=== PATIENT | female | born 1990 | race Caucasian/White ===

== ENCOUNTER 2016-07-19 23:25 | Emergency (ER) | payer MEDICAID, OTHER ==
[~2016-07-19] VITALS: Ht 154.9 cm; Wt 96.2 kg
[~2016-07-19 23:25] MED LIST: LORTA5 PO; MACR100C PO
[2016-07-19 23:28] VITALS: BP 128/78; PULSE 93; RESP 16; TEMP 97.8; O2SAT 97
[2016-07-19] MEDS ORDERED: SODIUM CHLORIDE 0.9% FLUSH 10 ML FLUSH IV FLUSH PRN (23:45)
--- NOTE | 2016-07-19 23:47 | PD ---
HPI Chief Complaint: Flank/Kidney Pain Time Seen by Provider: 23:43 Travel History International Travel<30 days: No Contact w/Intl Traveler<30days: No Traveled to known affect area: No History of Present Illness HPI 26-year-old female presents to the emergency department for complaint of left upper quadrant abdominal pain worsened by eating and drinking. Patient rates discomfort as moderate. Patient denies fever chills. Patient's had nausea without vomiting. Patient denies diarrhea or constipation. Patient does not report any hematemesis or coffee-ground emesis. Patient denies dysuria frequency urgency hematuria or flank pain. Patient takes control pills last muscle. Just ended a few days ago and denies . Patient is 3 para 1 AB 2. Patient has had previous urinary tract infections but states symptoms are not similar to prior UTI. Patient denies chest pain or shortness of breath. Patient's had no recent respiratory illness. Patient is able to identify alleviating factors. Patient denies history of peptic ulcer disease gallbladder disease issues with pancreatitis in the past. [facility] Past Medical History Narrative Medical use hypertension; ; no tobacco use; nursing notes reviewed Diminished Hearing: No Hypertension: Yes : 2 Para: 1 Miscarriage: 1 Dilation and Curettage (D&C): Yes Past Surgical History Section: Yes (2008) Social History Alcohol Use: Yes (SOCIAL) Tobacco Use: No Substance Use: No Allergies-Medications (Allergen,Severity, Reaction): Coded Allergies: Penicillin (Verified Allergy, Unknown, 07/20/16) Reported Meds & Prescriptions Reported Meds & Active Scripts Active Cipro (Ciprofloxacin HCl) 500 Mg Tab 500 Mg PO BID 7 Days Reported [ Control] 1 Tab PO DAILY Review of Systems Except as stated in HPI: all other systems reviewed are Neg General / Constitutional: No: Fever, Chills HENT: No: Congestion Cardiovascular: No: Chest Pain or Discomfort Gastrointestinal: Positive: Nausea, Abdominal Pain, No: Vomiting, Diarrhea Genitourinary: No: Dysuria, Flank Pain, Dysmenorrhea, Vaginal Bleeding Musculoskeletal: No: Myalgias, Arthralgias Skin: No Rash Neurologic: No: Weakness Psychiatric: No: Anxiety Endocrine: No: Heat Intolerance Hematologic/Lymphatic: No: Easy Bruising Physical Exam Narrative GENERAL: Well-developed well-nourished obese female in no acute distress no respiratory distress SKIN: Warm and dry. HEAD: Normocephalic. EYES: No scleral icterus. No injection or drainage. NECK: Supple, trachea midline. No JVD or lymphadenopathy. CARDIOVASCULAR: Regular rate and rhythm without murmurs, gallops, or rubs. RESPIRATORY: Breath sounds equal bilaterally. No accessory muscle use. GASTROINTESTINAL: Abdomen soft, reproducible left upper quadrant tenderness without guarding or rebound, nondistended. MUSCULOSKELETAL: No cyanosis, or edema. BACK: Nontender without obvious deformity. No CVA tenderness. Data Data Last Documented VS Vital Signs Date Time Temp Pulse Resp B/P Pulse Ox O2 Delivery O2 Flow Rate FiO2 07/20/16 02:15 81 18 117/65 97 Room Air 07/19/16 23:28 97.8 Orders Complete Blood Count With Diff (07/19/16 23:43) Comprehensive Metabolic Panel (07/19/16 23:43) Lipase (07/19/16 23:43) Urinalysis - C+S If Indicated (07/19/16 23:43) Iv Access Insert/Monitor (07/19/16 23:43) Ecg Monitoring (07/19/16 23:43) Oximetry (07/19/16 23:43) Sodium Chloride 0.9% Flush (Ns Flush) (07/19/16 23:45) Ed Urine Pregnancytest Poc (07/19/16 23:43) Urine Culture (07/19/16 23:45) Ct Abd/Pel W Iv Contrast(Rout) (07/20/16 ) Ketorolac Inj (Toradol Inj) (07/20/16 01:15) Iohexol 350 Inj (Omnipaque 350 Inj) (07/20/16 02:07) Labs Laboratory Tests Test 07/19/16 07/19/16 23:45 23:55 Urine Color YELLOW Urine Turbidity SLIGHT Urine pH 6.0 Urine Specific [place] 1.022 Urine Protein NEG mg/dL Urine Glucose (UA) NEG mg/dL Urine Ketones NEG mg/dL Urine Occult Blood NEG Urine Nitrite NEG Urine Bilirubin NEG Urine Leukocyte Esterase TRACE Urine WBC 9-14 /hpf Urine Squamous Epithelial > 8 /hpf Cells Urine Amorphous Sediment FEW Urine Bacteria FEW /hpf Urine Mucus FEW /lpf Microscopic Urinalysis Comment CULTURE INDICATED White Blood Count 14.0 TH/MM3 Red Blood Count 4.79 MIL/MM3 Hemoglobin 13.5 GM/DL Hematocrit 39.7 % Mean Corpuscular Volume 82.7 FL Mean Corpuscular Hemoglobin 28.2 PG Mean Corpuscular Hemoglobin 34.1 % Concent Red Cell Distribution Width 12.4 % Platelet Count 225 TH/MM3 Mean Platelet Volume 10.6 FL Neutrophils (%) (Auto) 60.5 % Lymphocytes (%) (Auto) 24.6 % Monocytes (%) (Auto) 3.9 % Eosinophils (%) (Auto) 10.0 % Basophils (%) (Auto) 1.0 % Neutrophils # (Auto) 8.6 TH/MM3 Lymphocytes # (Auto) 3.4 TH/MM3 Monocytes # (Auto) 0.5 TH/MM3 Eosinophils # (Auto) 1.4 TH/MM3 Basophils # (Auto) 0.1 TH/MM3 CBC Comment DIFF FINAL Differential Comment Sodium Level 141 MEQ/L Potassium Level 3.6 MEQ/L Chloride Level 107 MEQ/L Carbon Dioxide Level 26.7 MEQ/L Anion Gap 7 MEQ/L Blood Urea Nitrogen 14 MG/DL Creatinine 0.92 MG/DL Estimat Glomerular Filtration 74 ML/MIN Rate Random Glucose 95 MG/DL Calcium Level 8.5 MG/DL Total Bilirubin 0.2 MG/DL Aspartate Amino Transf 27 U/L (AST/SGOT) Alanine Aminotransferase 42 U/L (ALT/SGPT) Alkaline Phosphatase 63 U/L Total Protein 7.2 GM/DL Albumin 3.2 GM/DL Lipase 129 U/L MDM Medical Decision Making Medical Screen Exam Complete: Yes Emergency Medical Condition: Yes Medical Record Reviewed: Yes Interpretation(s) CBC & BMP Diagram 07/19/16 23:55 Vital Signs Date Time Temp Pulse Resp B/P Pulse Ox O2 Delivery O2 Flow Rate FiO2 07/20/16 01:15 82 18 115/72 96 Room Air 07/20/16 00:15 88 18 145/85 96 Room Air 07/19/16 23:55 97 Room Air 07/19/16 23:28 97.8 93 16 128/[address] abd/pel w contrast: CONCLUSION: 1. Multiple small lymph nodes throughout the mesentery. 2. No acute inflammatory process. Jean Claude Ma MD on July 20, 2016 at 2:10 Board Certified Radiologist. This report was verified electronically. POC hcg: negative Differential Diagnosis Abdominal pain, gastritis, peptic ulcer disease, pancreatitis, atypical biliary colic, cholecystitis, UTI, flank pain, pyelonephritis Narrative Course IV access obtained specimens collected and sent for resulting urinalysis specimen collected [id number] test performed Diagnosis Primary Impression: UTI (urinary tract infection) Additional Impressions: Abdominal pain Gastritis Referrals: Primary Care Physician call for appointment Patient Instructions: General Instructions Additional Instructions: Increase fluid hydration Follow-up with primary care provider Return to the emergency department for a concerns or change in condition Take Zantac 150 twice daily for one week Recommend clear liquid diet for next 12-24 hours and advance as tolerated to bland diet then regular diet avoiding fried and fatty foods Take acetaminophen as needed for fever 100.4F or greater Avoid non-steroidal medications such as Advil/Motrin/ibuprofen and Aleve/ naproxen/Naprosyn 2 weeks Med/Other Pt SpecificInfo: Prescription(s) given Scripts Ciprofloxacin (Cipro)500 Mg Nay691 Mg PO BID 7 Days Ref 0 Prov:Reba Bateman MD 07/20/16 Disposition: 01 DISCHARGE HOME Condition: Stable Reba Bateman MD Jul 19, 2016 23:47
[2016-07-19 23:55] VITALS: O2SAT 97
[2016-07-20 00:10] LABS: BLOOD, URINE NEG (NEG); GLUCOSE,URINE NEG (NEG); KETONE, URINE NEG (NEG); NITRITE,URINE NEG (NEG)
[2016-07-20 00:15] VITALS: BP 145/85; PULSE 88; RESP 18; O2SAT 96
[2016-07-20 00:18] LABS: URINE COLOR YELLOW (YELLW/STRAW)
[2016-07-20 00:19] LABS: BACTERIA, URINE FEW /hpf; MUCUS URINE FEW /lpf (OCC); SQUAMOUS EPITHELIAL CELL URINE > 8 /hpf (0-5)
[2016-07-20 00:20] LABS: COMMENT (UR) CULTURE INDICATED; CULTURE IF INDICATED CULTURE INDICATED
[2016-07-20 00:20] LABS: CHLORIDE 107 MEQ/L (98-107); POTASSIUM 3.6 MEQ/L (3.5-5.1); SODIUM (NA) 141 MEQ/L (136-145)
[2016-07-20] MEDS ORDERED: Birth Control PO (00:22)
[2016-07-20 00:24] LABS: ANION GAP 7 MEQ/L (5-15); BICARBONATE 26.7 MEQ/L (21.0-32.0); BLOOD UREA NITROGEN 14 MG/DL (7-18)
[2016-07-20 00:26] LABS: ALT (GPT) 42 U/L (10-53); AST (GOT) 27 U/L (15-37)
[2016-07-20 00:27] LABS: GLOMERULAR FILTRATION RATE 74 ML/MIN (>89)
[2016-07-20 00:28] LABS: TOTAL BILIRUBIN ADULT 0.2 MG/DL (0.2-1.0)
[2016-07-20 00:29] LABS: ALKALINE PHOSPHATASE 63 U/L (45-117)
[2016-07-20 00:30] LABS: AUTOMATED NEUTROPHIL # 8.6 TH/MM3 (1.8-7.7); BASOPHIL # 0.1 TH/MM3 (0-0.2); EOSINOPHIL # 1.4 TH/MM3 (0-0.4); HEMATOCRIT 39.7 % (35.0-46.0); HEMO FLAGS DIFF FINAL; LYMPH % 24.6 % (9.0-44.0); LYMPHOCYTE # 3.4 TH/MM3 (1.0-4.8); MEAN CELL VOLUME 82.7 FL (80.0-100.0); MEAN CORPUSCULAR HEMOGLOBIN 28.2 PG (27.0-34.0); MEAN CORPUSCULAR HGB CONC 34.1 % (32.0-36.0); MONO % 3.9 % (0.0-8.0); NEUT % 60.5 % (16.0-70.0); PLATELET COUNT 225 TH/MM3 (150-450); RED BLOOD COUNT 4.79 MIL/MM3 (4.00-5.30); RED CELL DISTRIBUTION WIDTH 12.4 % (11.6-17.2)
[2016-07-20 01:15] VITALS: BP 115/72; PULSE 82; RESP 18; O2SAT 96
[2016-07-20] MEDS ORDERED: KETOROLAC TROMETHAMINE 30 MG/ML (IVP) VIAL IV PUSH ONE (01:15)
[2016-07-20] MEDS ORDERED: IOHEXOL 350 MG/ML 10 ML VIAL (for RAD DIAG) IV ONE (02:07)
--- NOTE | 2016-07-20 02:14 | RADHPO ---
EXAM DATE/TIME: 07/20/2016 01:46 [place] COMPARISON: No previous studies available for comparison. INDICATIONS : Left upper quadrant pain with nausea. IV CONTRAST: 97 cc Omnipaque 350 (iohexol) IV ORAL CONTRAST: No oral contrast ingested. RADIATION DOSE: 19.62 CTDIvol (mGy) MEDICAL HISTORY : Hypertension. SURGICAL HISTORY : section. ENCOUNTER: Initial ACUITY: 1 day PAIN SCALE: 7/10 LOCATION: Left upper quadrant TECHNIQUE: Volumetric scanning of the abdomen and pelvis was performed. Using automated exposure control and ad justment of the mA and/or kV according to patient size, radiation dose was kept as low as reasonably achievable to obtain optimal diagnostic quality images. FINDINGS: LOWER LUNGS: The visualized lower lungs are clear. LIVER: Homogeneous density without lesion. There is no dilation of the biliary tree. No calcified gallston es. SPLEEN: Normal size without lesion. PANCREAS: Within normal limits. KIDNEYS: Normal in size and shape. There is no mass, stone or hydronephrosis. ADRENAL GLANDS: Within normal limits. VASCULAR: There is no aortic aneurysm. BOWEL/MESENTERY: The stomach, small bowel, and colon demonstrate no acute abnormality. Multiple small lymph nodes thr oughout the mesentery. There is no free intraperitoneal air or fluid. ABDOMINAL WALL: Within normal limits. RETROPERITONEUM: There is no lymphadenopathy. BLADDER: No wall thickening or mass. REPRODUCTIVE: Within normal limits. INGUINAL: There is no lymphadenopathy or hernia. MUSCULOSKELETAL: Within normal limits for patient age. CONCLUSION: 1. Multiple small lymph nodes throughout the mesentery. 2. No acute inflammatory process. Jean Claude Ma MD on July 20, 2016 at 2:10 Board Certified Radiologist. This report was verified electronically.
[2016-07-20 02:15] VITALS: BP 117/65; PULSE 81; RESP 18; O2SAT 97
[2016-07-20] MEDS ORDERED: CIPR-9 PO (02:23)
[2016-07-20] MEDS ORDERED: CIPROFLOXACIN 500 MG TAB PO ONE (02:30)
== END 2016-07-20 02:39 | disposition home or self-care (01) ==
LOC: PHED 23:25
DX: N39.0 Urinary tract infection, site not specified (principal); R10.12 Left upper quadrant pain; K29.70 Gastritis, unspecified, without bleeding; I10 Essential (primary) hypertension; B96.20 Unspecified Escherichia coli [E. coli] as the cause of diseases classified elsewhere
CPT/HCPCS: 74177; 80053; 81001; 83690; 84703; 85025; 87077; 87086; 87186; 96374; 99284; J1885; Q9967

== ENCOUNTER 2016-11-09 09:06 | Emergency (ER) | payer MEDICAID ==
[~2016-11-09 09:06] MED LIST changes: +Birth Control PO; +CIPR-9 PO; -LORTA5 PO; -MACR100C PO
[2016-11-09 09:09] VITALS: BP 117/85; PULSE 94; RESP 20; TEMP 98.7; O2SAT 98
[2016-11-09] MEDS ORDERED: PREN1TAB58 (09:26)
--- NOTE | 2016-11-09 09:34 | PD ---
HPI Chief Complaint: Complaint Time Seen by Provider: 09:28 Travel History International Travel<30 days: No Contact w/Intl Traveler<30days: No Traveled to known affect area: No History of Present Illness HPI This 26-year-old female is complaining of urinary tract infection. She's been having frequency and has noted that her urine is cloudy. She has had quite frequent UTIs through the years. She was here last June with a urinary tract infection secondary to Escherichia coli. She is currently 15 weeks . She has not been having any bleeding. She had an ultrasound done last Wednesday which was apparently okay. She is 4 para 1. She did have preeclampsia and toxemia with her fever is . She had 2 early miscarriages. [facility] Past Medical History Diminished Hearing: No Genitourinary: Yes (Kidney infections) Hypertension: Yes (Preeclampsia) ?: LMP: 07/30/16 : 3 Para: 1 Miscarriage: 2 Dilation and Curettage (D&C): Yes Past Surgical History Section: Yes (2008) Social History Alcohol Use: No Tobacco Use: No Substance Use: No Allergies-Medications (Allergen,Severity, Reaction): Coded Allergies: Penicillin (Verified Allergy, Unknown, 11/09/16) Reported Meds & Prescriptions Reported Meds & Active Scripts Active Reported Vitamin Formula Tb ( Vit/Iron Fumarate/FA) 1 Each Tablet Review of Systems General / Constitutional: No: Fever, Chills Eyes: No: Diploplia HENT: No: Headaches Cardiovascular: No: Chest Pain or Discomfort, Palpitations Respiratory: No: Shortness of Breath Gastrointestinal: Positive: Nausea Genitourinary: Positive: Frequency, Dysuria, No: Discharge, Vaginal Bleeding Physical Exam Narrative GENERAL: Well-developed female SKIN: Focused skin assessment warm/dry. HEAD: Atraumatic. Normocephalic. EYES: Pupils equal and round. No scleral icterus. No injection or drainage. ENT: No nasal bleeding or discharge. Mucous membranes pink and moist. NECK: Trachea midline. No JVD. GASTROINTESTINAL: Abdomen soft, non-tender, nondistended. Hepatic and splenic margins not palpable. MUSCULOSKELETAL: No obvious deformities. No clubbing. No cyanosis. No edema. NEUROLOGICAL: Awake and alert. No obvious cranial nerve deficits. Motor grossly within normal limits. Normal speech. PSYCHIATRIC: Appropriate mood and affect; insight and judgment normal. Data Data Last Documented VS Vital Signs Date Time Temp Pulse Resp B/P Pulse Ox O2 Delivery O2 Flow Rate FiO2 11/09/16 09:09 98.7 94 20 117/85 98 Orders Urinalysis - C+S If Indicated (11/09/16 09:11) Labs Laboratory Tests Test 11/09/16 09:20 Urine Collection Type CLEAN CATCH Urine Color YELLOW Urine Turbidity CLOUDY Urine pH 7.5 Urine Specific [place] 1.010 Urine Protein NEG mg/dL Urine Glucose (UA) NEG mg/dL Urine Ketones NEG mg/dL Urine Occult Blood NEG Urine Nitrite NEG Urine Bilirubin NEG Urine Leukocyte Esterase NEG Urine Squamous Epithelial 0-5 /hpf Cells Urine Amorphous Sediment MOD Microscopic Urinalysis Comment CULT NOT INDICATED MDM Medical Decision Making Medical Screen Exam Complete: Yes Emergency Medical Condition: Yes Medical Record Reviewed: Yes Differential Diagnosis Differential includes UTI, frequency secondary to , Narrative Course Urine is negative for infection. Patient denies vaginal discharge I don't think a pelvic exam was warranted. She is stable for discharge Diagnosis Primary Impression: Dysuria during Disposition: DISCHARGE HOME Condition: Stable Clemente Winter MD Nov 09, 2016 09:33
[2016-11-09 09:44] LABS: BLOOD, URINE NEG (NEG); GLUCOSE,URINE NEG (NEG); KETONE, URINE NEG (NEG); NITRITE,URINE NEG (NEG); PH, URINE 7.5 (5.0-8.5)
[2016-11-09 09:53] LABS: METHOD OF COLLECTION CLEAN CATCH; SQUAMOUS EPITHELIAL CELL URINE 0-5 /hpf (0-5); URINE COLOR YELLOW (YELLW/STRAW)
[2016-11-09 09:54] LABS: COMMENT (UR) CULT NOT INDICATED; CULTURE IF INDICATED CULT NOT INDICATED
== END 2016-11-09 10:34 | disposition home or self-care (01) ==
LOC: PHED 09:06
DX: O26.899 Other specified pregnancy related conditions, unspecified trimester (principal); R30.0 Dysuria
CPT/HCPCS: 81001; 99283

== ENCOUNTER 2016-12-24 21:05 | Emergency (ER) | payer MEDICAID ==
[~2016-12-24] VITALS: Ht 154.9 cm; Wt 91.7 kg
[~2016-12-24 21:05] MED LIST changes: -Birth Control PO; -CIPR-9 PO; +PREN1TAB58
[2016-12-24 21:16] VITALS: BP 136/93; PULSE 107; RESP 18; TEMP 98.4
--- NOTE | 2016-12-24 21:44 | PD ---
HPI Chief Complaint: Skin Problem Time Seen by Provider: 21:31 Travel History International Travel<30 days: No Contact w/Intl Traveler<30days: No Traveled to known affect area: No History of Present Illness HPI The patient is a 26-year-old female that is 21 weeks and complains of some redness on her right breast that started last night. She says it is slightly painful. She says the redness is getting larger. She denies any fever. Last week she was on Macrobid for a urinary tract infection. It is not pruritic. PFSH Past Medical History Diminished Hearing: No Genitourinary: Yes (Kidney infections) Hypertension: Yes (Preeclampsia) ?: LMP: 21 weeks : 3 Para: 1 Miscarriage: 2 Dilation and Curettage (D&C): Yes Past Surgical History Section: Yes (2008) Social History Alcohol Use: No Tobacco Use: No Substance Use: No Allergies-Medications (Allergen,Severity, Reaction): Coded Allergies: penicillin G (Unverified Allergy, Unknown, 12/08/16) Reported Meds & Prescriptions Reported Meds & Active Scripts Active Reported Vitamin Formula Tb ( Vit/Iron Fumarate/FA) 1 Each Tablet Review of Systems Except as stated in HPI: all other systems reviewed are Neg Physical Exam Narrative GENERAL: Well-nourished, well-developed patient in minimal apparent distress with her right breast discomfort. Her vital signs show blood pressure 136/93 with heart rate of 107 but otherwise normal. SKIN: Focused skin assessment warm/dry. The skin over the right breast shows some slight erythema between 12:00 and 3:00. No masses are palpated. Specifically, no abscesses are noted. The erythema begins at the outer edge of the areola and extends from 3 cm beyond that. It is patchy and minimally tender. HEAD: Normocephalic. EYES: No scleral icterus. No injection or drainage. NECK: Supple, trachea midline. No JVD or lymphadenopathy. CARDIOVASCULAR: Regular rate and rhythm without murmurs, gallops, or rubs. RESPIRATORY: Breath sounds equal bilaterally. No accessory muscle use. GASTROINTESTINAL: Abdomen soft, non-tender, nondistended. MUSCULOSKELETAL: No cyanosis, or edema. BACK: Nontender without obvious deformity. No CVA tenderness. Data Data Last Documented VS Vital Signs Date Time Temp Pulse Resp B/P (MAP) Pulse Ox O2 Delivery O2 Flow Rate FiO2 12/24/16 21:42 92 18 12/24/16 21:16 98.4 136/93 (107) MDM Medical Decision Making Medical Screen Exam Complete: Yes Emergency Medical Condition: Yes Medical Record Reviewed: Yes Differential Diagnosis Allergic reaction, cellulitis, contact dermatitis Plan: The patient was given clindamycin 300 mg 3 times daily for 10 days. Narrative Course The patient may have an early cellulitis of the right breast. It is very minimal at this time. The patient gets hives with penicillin G and is not sure if she is allergic to Keflex or not. Diagnosis Primary Impression: Cellulitis of right breast Additional Instructions: The tablet is one tablet 4 times daily for 10 days. Follow-up with your OB doctor as you intend to do. Med/Other Pt SpecificInfo: Prescription(s) given Scripts Clindamycin (Clindamycin) 300 Mg Cap 600 MG PO Q8H for Infection for 10 Days, CAP 0 Refills Prov: Roger Abraham MD 12/24/16 Disposition: 01 DISCHARGE HOME Condition: Stable Roger Abraham MD Dec 24, 2016 21:44
[2016-12-24] MEDS ORDERED: CLIN1CAP6 PO ×2 (21:48→22:15)
[2016-12-24] MEDS ORDERED: CLINDAMYCIN 150 MG CAP PO ONE (22:00)
== END 2016-12-24 22:44 | disposition home or self-care (01) ==
LOC: PHED 21:05
DX: N61.0 Mastitis without abscess (principal); O26.892 Other specified pregnancy related conditions, second trimester; Z3A.21 21 weeks gestation of pregnancy; Z88.0 Allergy status to penicillin
CPT/HCPCS: 99283

== ENCOUNTER 2017-04-06 15:27 | Emergency (ER) | payer MEDICAID ==
[~2017-04-06 15:27] MED LIST changes: +CLIN300C5 PO
--- NOTE | 2017-04-06 16:16 | PD ---
HPI Chief Complaint elevated blood pressure at [facility] Date Seen: Apr 06, 2017 Time Seen: 16:12 Travel History International Travel<30 Days: No Contact w/Intl Traveler<30Days: No Known Affected Area: No History of Present Illness HPI 26-year-old G for P1 at 35-36 weeks gestation comes in today because of an elevated blood pressure. When patient was 7 years ago she had toxemia at 32 weeks and was concerned because she felt hot and her extremities with an increase in edema. [facility] when she took her blood pressure on 3 different occasions with one of the blood pressures showing a systolic of 140 although diastolics were in the 70s. Patient has no other symptoms and was just seen by her OB 3 days ago with a normal blood pressure. Patient's had a previous section and is scheduled for repeat . Weeks Gestation: 35 Para: 1 : 4 Miscarriage: 1 History Past Medical History Medical History: Denies Significant Hx Obstetric History Obstetric History section at 32 weeks due to severe hypertension D&C after miscarriage Past Surgical History Narrative Surgical D&C Family History Family History: Negative Social History Alcohol Use: No Tobacco Use: No Substance Abuse: No Allergies-Medications (Allergen,Severity, Reaction): Coded Allergies: penicillin G (Unverified Allergy, Unknown, 12/08/16) Home Meds Active Scripts Clindamycin (Clindamycin) 300 Mg Cap, 300 MG PO TID for Infection for 10 Days, CAP 0 Refills Prov:Roger Abraham MD 12/24/16 Clindamycin (Clindamycin) 300 Mg Cap, 600 MG PO Q8H for Infection for 10 Days, CAP 0 Refills Prov:Roger Abraham MD 12/24/16 Reported Medications Vit/Iron Fumarate/FA ( Vitamin Formula Tb) 1 Each Tablet 11/09/16 Review of Systems Except as stated in HPI: all other systems reviewed are Neg Physical Exam Narrative GENERAL: Well-nourished, well-developed patient. SKIN: Warm and dry. HEAD: Normocephalic and atraumatic. EYES: No scleral icterus. No injection or drainage. ENT: No nasal drainage noted. Mucous membranes pink. Airway patent. NECK: Supple, trachea midline. No JVD. CARDIOVASCULAR: Regular rate and rhythm without murmurs, gallops, or rubs. RESPIRATORY: Breath sounds equal bilaterally. No accessory muscle use. ABDOMEN/GI: Abdomen soft, non-tender, bowel sounds present, no rebound, no guarding Gravid to [33-] weeks size Fundal Height: [-] GENITOURINARY: Deferred External Genitalia: intact and normal in appearance BUS glands: [-] Cervix: [-] Dilatation: [-] Effacement: [-] Station: [-] Presentation: [-] Membranes: [intact or ruptured] Uterine Contractions: [-] FHT's: Category: [1-] Baseline: [140-] Reactive: [-Moderate] Variability: [-Moderate] Decels: [-Absent] EXTREMITIES: No cyanosis or edema. BACK: Nontender without obvious deformity. No CVA tenderness. NEUROLOGICAL: Awake and alert. Motor and sensory grossly within normal limits. Five out of 5 muscle strength in all muscle groups. Normal speech. Data Data Vital Signs Reviewed: Yes [facility] Medical Record Reviewed: Yes Plan 26-year-old who is at 35-36 weeks gestation with normotensive blood pressures. Highest blood pressure here is 120/74, no edema on examination Patient is a follow-up to her primary health actuary on Wednesday Diagnosis Diagnosis: Primary Impression: 35 weeks gestation of Additional Impressions: History of pre-eclampsia in prior , currently Previous section complicating , antepartum condition or complication Elevated blood pressure affecting in third trimester, antepartum Disposition: 01 DISCHARGE HOME Sanam Pittman MD Apr 06, 2017 16:16
== END 2017-04-06 16:32 | disposition home or self-care (01) ==
LOC: HOBED 15:27
DX: O26.893 Other specified pregnancy related conditions, third trimester (principal); R03.0 Elevated blood-pressure reading, without diagnosis of hypertension; Z3A.35 35 weeks gestation of pregnancy; Z88.0 Allergy status to penicillin
CPT/HCPCS: 59025

== ENCOUNTER 2017-04-26 15:34 | Emergency (ER) | payer MEDICAID ==
--- NOTE | 2017-04-26 16:15 | PD ---
HPI Chief Complaint decr FM and abdominal pain Date Seen: Apr 26, 2017 Time Seen: 16:08 Travel History International Travel<30 Days: No Contact w/Intl Traveler<30Days: No Known Affected Area: No History of Present Illness HPI Pt is a 27y/o @ 38.4wks. She has PNC with [facility]AY. She presents today with c/o decreased FM (baby is active just not as much) and upper abdominal pain (where baby's bottom is). She denies ctx, LOF, or VB. She has a h/o CS x1 at 32wks for preE. She is not on ASA 81mg this preg. rCS is scheduled for Wednesday. Weeks Gestation: 38 Para: 1 : 4 History Past Medical History Medical History: Denies Significant Hx Obstetric History Obstetric History CS x1 at 32wks, complicated by preE SAB x2 Past Surgical History Narrative Surgical CS x1 D&C x1 Family History Family History: Negative Social History Alcohol Use: No Tobacco Use: No Substance Abuse: No Allergies-Medications (Allergen,Severity, Reaction): Coded Allergies: penicillin G (Unverified Allergy, Intermediate, hives, 04/06/17) Home Meds Active Scripts Clindamycin (Clindamycin) 300 Mg Cap, 300 MG PO TID for Infection for 10 Days, CAP 0 Refills Prov:Roger Abraham MD 12/24/16 Clindamycin (Clindamycin) 300 Mg Cap, 600 MG PO Q8H for Infection for 10 Days, CAP 0 Refills Prov:Roger Abraham MD 12/24/16 Reported Medications Vit/Iron Fumarate/FA ( Vitamin Formula Tb) 1 Each Tablet 11/09/16 Review of Systems Except as stated in HPI: all other systems reviewed are Neg Physical Exam Narrative General: well developed, well nourished, no acute distress HEENT: normocephalic atraumatic, extraocular movements intact, neck supple Abdomen: soft, gravid, tender over buttocks, nondistended Uterus: fundus non tender, term Extremities: full range of motion Skin: normal coloration, no rashes, no suspicious skin lesions noted Neurologic: cranial nerves 2-12 grossly intact, normal muscle tone, normal gait Psychiatric: normal mood and affect, appropriate FHTs: 145, +accels, no decels, moderate variability, reactive [place]: no ctx Data Data Vital Signs Reviewed: Yes Orders Orders Vital Signs (Adult) .ON ADMISSION (04/26/17 16:07) ^ Labor Status (04/26/17 16:07) ^ Non Stress Test (04/26/17 16:07) Ed Discharge Order (04/26/17 16:07) MDM Plan 27y/o @ 38.4wks with decr FM and upper abdominal pain. -- NST reactive -- toco quiet -- abdomen soft, non-tender except for above buttocks -- has rCS scheduled for Wednesday Dispo: stable for d/c home with precautions Diagnosis Diagnosis: Primary Impression: 38 weeks gestation of Additional Impressions: Abdominal pain Decreased movement History of delivery Guicho Red MD Apr 26, 2017 16:15
== END 2017-04-26 16:28 | disposition home or self-care (01) ==
LOC: HOBED 15:34
DX: O36.8130 Decreased fetal movements, third trimester, not applicable or unspecified (principal); R10.9 Unspecified abdominal pain; Z3A.38 38 weeks gestation of pregnancy; Z88.0 Allergy status to penicillin
CPT/HCPCS: 59025

== ENCOUNTER 2017-04-30 05:40 | Inpatient (IN) | payer MEDICAID ==
--- NOTE | 2017-04-29 16:31 | MH ---
cc: GEORGES VALENCIA M.D. DATE OF ADMISSION: 04/30/2017 HISTORY OF PRESENT ILLNESS The patient is a 27-year-old female, 4, para 1, estimated due date is May 06, 2017. The patient is 39-weeks by early care and ultrasound. The patient has a history of previous section for severe preeclampsia at 32 weeks and desires elective repeat. The patient's obstetrical history as stated above. The patient in 2015 delivered at 33-weeks due to severe preeclampsia a viable male by section. The patient is status post spontaneous miscarriage in 2016 as well as in 2012 requiring dilatation and curettage. The patient's care has been unremarkable. The patient's group B strep status is negative. Blood type is A+. 1-hour Glucola was normal. MEDICAL HISTORY ALLERGIES PENICILLIN. MEDICATIONS Current medications include vitamins. PAST SURGICAL HISTORY Includes D&C with suction in 2012, section 2009. FAMILY HISTORY The patient's family history is noncontributory. SOCIAL HISTORY She is . Denies use of alcohol, tobacco or illicit substances. PHYSICAL EXAMINATION GENERAL: The patient is a well-appearing female, in no acute distress. VITAL SIGNS: Stable. Blood pressure is 112/70. heart tones in the 140s. The patient is afebrile. HEENT: Normal. No adenopathy. NECK: Neck is supple. Full range of motion. LUNGS: Lungs are clear in all rivers. CARDIAC: Regular rate and rhythm without murmur, rub or gallop. ABDOMEN: Gravid, full-term. PELVIC: Exam is deferred. EXTREMITIES: Symmetrical, full range of motion. There is no cyanosis, clubbing or edema. NEUROLOGIC: Exam is grossly intact, nonfocal. ASSESSMENT The patient at 39-weeks gestation, history of previous section for preeclampsia at 32-weeks, desires elective repeat section, uncomplicated course, GBS negative. Due to PENICILLIN ALLERGY clindamycin will be used as a prophylactic antibiotic. Georges Valencia MD SJAugustina/TLL /3:27 PM /3:54 PM
[~2017-04-30] VITALS: Ht 154.9 cm; Wt 95.0 kg
[2017-04-30] VITALS (25 sets, daily range): BP systolic 106–128; BP diastolic 58–74; PULSE 86–124; RESP 16–19; TEMP 97.8–98.8; O2SAT 96–100
[2017-04-30] MEDS ORDERED: TUMS500C CHEW (05:53)
[2017-04-30] MEDS ORDERED: TYLE325T PO (05:53)
[2017-04-30] MEDS ORDERED: LACTATED RINGER'S 1000 ML IV ONE (06:00)
[2017-04-30] MEDS ORDERED: CITRIC ACID-SODIUM CITRATE LIQ 30 ML UDC PO SCH (06:00)
[2017-04-30] MEDS ORDERED: LACTATED RINGER'S 1000 ML IV SCH (06:00)
[2017-04-30] MEDS ORDERED: CLINDAMYCIN 600 MG/NS 100 ML IV SCH ×2 (06:00)
[2017-04-30] MEDS ORDERED: CLINDAMYCIN PHOS 600 MG/4 ML VIAL ONE (06:22)
[2017-04-30 06:40] LABS: AUTOMATED NEUTROPHIL # 7.9 TH/MM3 (1.8-7.7); BASOPHIL # 0.1 TH/MM3 (0-0.2); BASOPHIL % 0.5 % (0.0-2.0); EOSINOPHIL # 0.5 TH/MM3 (0-0.4); EOSINOPHIL % 4.4 % (0.0-4.0); HEMATOCRIT 34.1 % (35.0-46.0); HEMOGLOBIN 11.6 GM/DL (11.6-15.3); LYMPH % 20.2 % (9.0-44.0); LYMPHOCYTE # 2.3 TH/MM3 (1.0-4.8); MEAN CELL VOLUME 83.1 FL (80.0-100.0); MEAN CORPUSCULAR HEMOGLOBIN 28.2 PG (27.0-34.0); MEAN CORPUSCULAR HGB CONC 33.9 % (32.0-36.0); MEAN PLATELET VOLUME 9.8 FL (7.0-11.0); MONO % 6.2 % (0.0-8.0); MONOCYTE # 0.7 TH/MM3 (0-0.9); NEUT % 68.7 % (16.0-70.0); PLATELET COUNT 191 TH/MM3 (150-450); RED CELL DISTRIBUTION WIDTH 14.1 % (11.6-17.2); WHITE BLOOD COUNT 11.5 TH/MM3 (4.0-11.0)
[2017-04-30 06:45] LABS: BACTERIA, URINE FEW /hpf; BILIRUBIN, URINE NEG (NEG); BLOOD, URINE NEG (NEG); GLUCOSE,URINE NEG (NEG); KETONE, URINE NEG (NEG); MUCUS URINE FEW /lpf (OCC); NITRITE,URINE NEG (NEG); PH, URINE 6.5 (5.0-8.5); SQUAMOUS EPITHELIAL CELL URINE 23 /hpf (0-5); TRANSITIONAL EPI CELLS, URINE <1 /hpf; URINE COLOR YELLOW (YELLW/STRAW); URINE LEUKOCYTE ESTERASE TRACE (NEG)
[2017-04-30] MEDS ORDERED: EPIDURAL-NO SYSTEMIC NARCOTICS PRN (07:25)
[2017-04-30] MEDS ORDERED: EPIDURAL-NALOXONE HCL 0.4 MG/ML AMP IV PUSH PRN (07:25)
[2017-04-30] MEDS ORDERED: EPIDURAL-DIPHENHYDRAMINE HCL 50 MG CAP PO PRN (07:25)
[2017-04-30] MEDS ORDERED: EPIDURAL-DIPHENHYDRAMINE HCL 50 MG/ML VIAL IV PUSH PRN (07:25)
[2017-04-30] MEDS ORDERED: EPIDURAL-DO NOT ADMINISTER ANTICOAGULANTS PRN (07:25)
[2017-04-30] MEDS ORDERED: MORPHINE SULFATE PF 5 MG/10 ML VIAL ONE (07:27)
--- NOTE | 2017-04-30 08:41 | PD.OB.DELI ---
Procedure Note Section Procedure Performed by Georges Amaya Procedure: Repeat Low Transverse Sec (with sterilization) Indication for delivery: Desired elective repeat Informed consent obtained: For anesthesia, For procedure Confirmed correct: Patient, Procedure, Site, Time-out taken Anesthesia: Spinal Medication prior to procedure: As documented in eMAR Monitoring during procedure: Blood pressure monitoring, classroom monitor, doppler, monitor, Pulse oximetry Urinary catheter: Inserted using sterile technique, To dependent drainage Sterile preparation: Duraprep, In usual fashion, With 2% chlorexidine ( Hibiclens) Position: Supine with wedge to right side, Supine with safety belt applied Operative Features Skin Incision: Pfannenstiel Uterine Incision: Low transverse w/knife / scissors Membranes Ruptured: Artificially Presentation: Occiput anterior Delivery date: Apr 30, 2017 Delivery time: 07:56 Delivery of infant: Assisted (vacuum x1 pull) Infant: Male One Minute : 8 Five Minute : 9 Weight: 6/8 Status of : Viable Placenta delivered: Intact Medications: Antibiotics, Oxytocin Estimated blood loss: 650cc Procedure tolerated: Well Maternal Condition: Stable Condition: Stable Georges Amaya MD Apr 30, 2017 08:40
[2017-04-30] MEDS ORDERED: ACETAMINOPHEN 325 MG TAB PO PRN (08:45)
[2017-04-30] MEDS ORDERED: KETOROLAC TROMETHAMINE 60 MG/2 ML (IM) VIAL IM PRN (08:45)
[2017-04-30] MEDS ORDERED: OXYTOCIN 30 UNITS-500ML PREMIX 500 ML IV ONE (09:00)
[2017-04-30] MEDS ORDERED: ONDANSETRON HCL 4 MG/2 ML VIAL IV PUSH PRN (09:00)
[2017-04-30] MEDS ORDERED: SODIUM CHLORIDE 0.9% FLUSH 10 ML FLUSH IV FLUSH PRN (09:00)
[2017-04-30] MEDS ORDERED: DOCUSATE SODIUM 50 MG/SENNA 8.6 MG TAB PO PRN (09:00)
[2017-04-30] MEDS ORDERED: SIMETHICONE 80 MG CHEWABLE TAB PO PRN (09:00)
[2017-04-30] MEDS: SODIUM CHLORIDE 0.9% FLUSH 10 ML FLUSH IV FLUSH SCH ×2 (09:00→20:18)
[2017-04-30] MEDS ORDERED: OXYTOCIN 30 UNITS-500ML PREMIX 500 ML ONE (09:16)
--- NOTE | 2017-04-30 09:21 | MP ---
cc: GEORGES VALENCIA M.D. DATE OF SURGERY 04/30/2017 PREOPERATIVE DIAGNOSIS 1. Term intrauterine . 2. Previous section for elective repeat and sterilization with tubal ligation. POSTOPERATIVE DIAGNOSES 1. Term intrauterine . 2. Previous section for elective repeat and sterilization with tubal ligation. 3. Delivery of a viable male . ANESTHESIA Spinal. ESTIMATED BLOOD LOSS 650 cc. DRAINS Cristobal to gravity. SURGICAL SPECIMEN Right and left fallopian tube segments. INDICATIONS FOR PROCEDURE Patient with a known history of previous section, low transverse incision, elected for repeat at term and sterilization at the time of her . PROCEDURE DESCRIPTION The patient received clindamycin IV due to PENICILLIN ALLERGY. She underwent spinal anesthetic without excellent result. She was prepped and draped. Cristobal was inserted by sterile technique. Sequentials were placed on the lower extremities. She had excellent pain control. A time-out was conducted and agreed on by all present in the room. The patient's previous Pfannenstiel incision was high up on her abdominal wall, previous performed at 32 weeks as an emergent . Due to the position of the incision in relationship to her term gravid uterus, the decision was to proceed with a lower Pfannenstiel incision just above the pubic symphysis. This was made using a #10 blade, taken through the skin, down through the subcutaneous layer to the fascia which was scored and dissected laterally by sharp dissection, the rectus from the muscle, identifying the peritoneum and opening it sharply, extending the incision and then opening the lower uterine segment exposure. The peritoneum was then opened sharply, a transverse incision was made in the lower uterine segment with clear fluid. The infant vertex was palpated, delivered with the aid of a vacuum extractor using a Kiwi with just one pull without complication. Nuchal cord was identified x 1, easily reduced. The infant was delivered in total with good tone and cry and the cord was doubly clamped and cut and the infant was taken to the isolette by the nurse present from the nursery. A cord sample was obtained for typing. The placenta was removed intact with trailing membranes. The uterus was delilah. Exploration of the cavity was clear. Closure of the uterine incision was made with a double layer using 0 Monocryl versus a simple locking suture, followed by a second imbricating suture. The fallopian tubes were identified easily and elevated with a [place] clamp. The mesentery was opened using the Bovie and 2-0 plain sutures placed proximally and distally allowing resection of the mid-isthmic portion of the tube, approximately 4-5 cm was excised on each side equally without complication. The uterus was intact. No active bleeding, no hematoma. The pelvis was irrigated. All free fluid was removed and aspirated and confirmation of hemostasis was made. The peritoneal layer was then closed with a simple running suture of 2-0 Monocryl, the muscle bellies were reapproximated with a simple mattress suture of 2-0 Monocryl. The fascia was closed with 0 Vicryl in a simple running fashion. The subcutaneous space was irrigated and dried - no active bleeding, and closed with a running suture of 2-0 Monocryl. Shelly were used to reapproximate the skin edge. Dressing was applied. Final count was correct. The patient was stable. The infant was doing well in the nursery. Georges Valencia MD [facility] /8:31 AM /8:36 AM
[2017-04-30] MEDS ORDERED: PHENYLEPH/NS 1000 MCG/10 ML SYR IV ONE (12:00)
[2017-04-30] MEDS ORDERED: ONDANSETRON HCL 4 MG/2 ML VIAL IV ONE (12:00)
[2017-04-30] MEDS ORDERED: ePHEDrine/NS 25 MG/5 ML SYRINGE IV ONE (12:00)
[2017-04-30] MEDS ORDERED: DEXAMETHASONE SOD PHOS 4 MG/ML VIAL IV ONE (12:00)
[2017-04-30] MEDS ORDERED: OXYTOCIN 10 UNIT/ML AMP IV ONE (12:00)
[2017-04-30] MEDS ORDERED: CLINDAMYCIN 600 MG/DEX PREMIX 50 ML IV SCH (13:00)
[2017-04-30] MEDS ORDERED: CLINDAMYCIN INJ 600 MG in SODIUM CHLORIDE 0.9% INJ 100 ML IV SCH (13:00)
[2017-04-30] MEDS: CLINDAMYCIN 600 MG/NS PREMIX 50 ML IV SCH ×2 (13:34→20:11)
[2017-04-30] MEDS ORDERED: OXYTOCIN 30 UNITS-500ML PREMIX 500 ML IV PRN (18:45)
[2017-04-30] MEDS: IBUPROFEN 600 MG TAB PO PRN (20:11)
[2017-04-30] MEDS: LACTATED RINGER'S 1000 ML INJ 1,000 ML IV SCH (21:08)
[2017-05-01] VITALS: BP 113/63; PULSE 85; RESP 18; TEMP 97.8; O2SAT 99
[2017-05-01] MEDS: CLINDAMYCIN 600 MG/NS PREMIX 50 ML IV SCH ×4 (02:42→18:05)
[2017-05-01] MEDS: IBUPROFEN 600 MG TAB PO PRN ×4 (02:42→23:31)
[2017-05-01 04:00] VITALS: BP 116/59; PULSE 78; RESP 18; TEMP 98.1; O2SAT 98
[2017-05-01 08:00] VITALS: BP 107/67; PULSE 93; RESP 18; TEMP 97.7; O2SAT 99
[2017-05-01] MEDS: LACTATED RINGER'S 1000 ML INJ 1,000 ML IV SCH (08:19)
[2017-05-01] MEDS: SODIUM CHLORIDE 0.9% FLUSH 10 ML FLUSH IV FLUSH SCH (09:00)
[2017-05-01 12:00] VITALS: BP 115/71; PULSE 78; RESP 18; TEMP 97.9; O2SAT 98
[2017-05-01] MEDS ORDERED: MEASLES, MUMPS, RUBELLA VACCINE 0.5 ML VIAL SQ ONE (16:00)
[2017-05-01] MEDS ORDERED: DIPHTH/TETANUS/ACEL PERTUSSIS (BOOSTER) 0.5 ML VIAL/PFS IM ONE (16:00)
--- NOTE | 2017-05-01 18:01 | HHI.OB ---
Subjective Post Operative Day: 1 Remarks Doing well Pain is fairly well controlled and recently it has increased. Taking only motrin and encouraged some percocet.\ Bleeding is small. Baby is doing well. Objective Vitals/I&O Vital Signs Date Time Temp Pulse Resp B/P (MAP) Pulse Ox O2 Delivery O2 Flow Rate FiO2 05/01/17 12:00 97.9 05/01/17 12:00 78 18 115/71 (86) 98 05/01/17 08:00 97.7 93 18 99 05/01/17 08:00 107/67 (80) 05/01/17 04:00 98.1 05/01/17 04:00 78 18 116/59 (78) 98 05/01/17 00:00 97.8 85 18 113/63 (80) 99 04/30/17 20:00 98.3 86 18 120/68 (85) 97 04/30/17 18:34 18 Result Diagram: 04/30/17 0610 Objective Remarks GENERAL: Well-nourished, well-developed patient. CARDIOVASCULAR: Regular rate and rhythm without murmurs, gallops, or rubs. RESPIRATORY: Breath sounds equal bilaterally. No accessory muscle use. ABDOMEN/GI: Abdomen soft, non-tender, bowel sounds present. Incision: Clean, dry and intact. Fundus: Firm, non-tender at umbilicus. GENITOURINARY: Light to moderate bleeding. EXTREMITIES: No cyanosis or edema, non-tender, without signs of DVT. Medications and IVs Current Medications Medications (Trade) Dose Ordered Sig/Lauri Route Start Time Stop Time Status Last Admin Lactated Ringer's 1,000 ml @ 150 mls/hr Q6H40M IV 04/30/17 06:00 04/30/17 07:18 (Bicitra Liq) 30 ml [employer] PO 04/30/17 06:00 05/03/17 05:59 04/30/17 07:18 Clindamycin Phosphate 600 mg/ Sodium Chloride 104 ml @ 208 mls/hr [employer] IV 04/30/17 06:00 04/30/17 07:18 Oxytocin 500 ml @ 100 mls/hr UNSCH X1 PRN IV 04/30/17 18:45 05/01/17 18:44 (NS Flush) 2 ml BID IV FLUSH 04/30/17 09:00 04/30/17 20:18 (NS Flush) 2 ml UNSCH PRN IV FLUSH 04/30/17 09:00 (Mylicon Chew) 80 mg QID PRN PO 04/30/17 09:00 (Tylenol) 650 mg Q6H PRN PO 04/30/17 08:45 (Motrin) 600 mg Q6H PRN PO 04/30/17 08:45 05/01/17 16:50 (Percocet 5-325 Mg) 1 tab Q4H PRN PO 04/30/17 08:45 (Percocet 5-325 Mg) 2 tab Q4H PRN PO 04/30/17 08:45 (Jami-Colace) 2 tab Q12H PRN PO 04/30/17 09:00 (Zofran Inj) 4 mg Q6H PRN IV PUSH 04/30/17 09:00 Clindamycin/ Sodium Chloride 50 ml @ 208 mls/hr Q6H IV 04/30/17 13:00 05/01/17 12:18 Assessment/Plan Assessment and Plan POD #! Doing well Routine care. Check cbc in the am. Kenny Wayne MD May 01, 2017 18:01
[2017-05-01] MEDS: oxyCODONE/ACETAMINOPHEN 5 MG/325 MG TAB PO PRN ×2 (18:03→23:32)
[2017-05-01 20:35] VITALS: BP 121/66; PULSE 80; RESP 18; TEMP 98
[2017-05-01 21:45] VITALS: BP 117/70; PULSE 76; RESP 18; TEMP 97.8
[2017-05-02] MEDS: oxyCODONE/ACETAMINOPHEN 5 MG/325 MG TAB PO PRN ×3 (04:22→12:31)
[2017-05-02 06:53] LABS: HEMATOCRIT 30.5 % (35.0-46.0); HEMOGLOBIN 10.2 GM/DL (11.6-15.3); MEAN CELL VOLUME 84.4 FL (80.0-100.0); MEAN CORPUSCULAR HEMOGLOBIN 28.3 PG (27.0-34.0); MEAN CORPUSCULAR HGB CONC 33.5 % (32.0-36.0); MEAN PLATELET VOLUME 9.9 FL (7.0-11.0); PLATELET COUNT 176 TH/MM3 (150-450); RED BLOOD COUNT 3.61 MIL/MM3 (4.00-5.30); WHITE BLOOD COUNT 11.5 TH/MM3 (4.0-11.0)
[2017-05-02] MEDS: IBUPROFEN 600 MG TAB PO PRN (07:52)
[2017-05-02 08:00] VITALS: BP 112/64; PULSE 80; RESP 20; TEMP 96.1; O2SAT 0
[2017-05-02] MEDS ORDERED: IBUP-232 PO (11:53)
[2017-05-02] MEDS ORDERED: OXYC1TAB63 PO (11:53)
--- NOTE | 2017-05-02 11:54 | HHI.DCPOC ---
Discharge Care Plan Diagnosis: (1) Liveborn by (2) Unwanted fertility Report Symptoms to Your Doctor -Temperature above 100.5 degrees -Redness, of incision or excessive or foul smelling drainage -Unusual pain or calf pain -Increased vaginal bleeding -Painful or difficulty urinating -Feelings of extreme sadness or anxiety after 2 weeks Goals to Promote Your Health * To prevent worsening of your condition and complications * To maintain your health at the optimal level Directions to Meet Your Goals Take your medications as prescribed Follow your dietary instruction Follow activity as directed Ensure plenty of rest for recovery Drink fluids for hydration Keep your appointments as scheduled Take your immunizations and boosters as scheduled If your symptoms worsen call your PCP, if no PCP go to Urgent Care Center or Emergency Room Smoking is Dangerous to Your Health. Avoid second hand smoke Call the 24-hour crisis hotline for domestic abuse at Kenny Wayne MD May 02, 2017 11:54
[2017-05-02 12:00] VITALS: BP 108/68; PULSE 91; RESP 20; TEMP 96.4; O2SAT 0
== END 2017-05-02 13:01 | disposition home or self-care (01) | DRG 766 ==
LOC: H2EB 05:40 → H1EA 09:45
PROVIDERS: ADMIT Obstetrics & Gynecology; ATTEND Obstetrics & Gynecology
PROC: 10D00Z1 Extraction of Products of Conception, Low, Open Approach (ICD-10-PCS; principal; 2017-04-30)
PROC: 0UB70ZZ Excision of Bilateral Fallopian Tubes, Open Approach (ICD-10-PCS; 2017-04-30)
DX: O34.211 Maternal care for low transverse scar from previous cesarean delivery (principal); Z88.0 Allergy status to penicillin; Z37.0 Single live birth; Z3A.39 39 weeks gestation of pregnancy; Z30.2 Encounter for sterilization
CPT/HCPCS: 59025; 80307; 81001; 85025; 85027; 86850; 86900; 86901; 88302; 90715; J1100; J2274; J2370; J2405; J2590; J7120